=== PATIENT | male | born 1985 | race Caucasian/White ===

== ENCOUNTER 2020-01-02 21:30 | Observation (INO) ==
[2020-01-02] MEDS: 0.9 % Sodium Chloride 1,000 ML IVC SCH ×2 (22:05→23:44)
[2020-01-02 22:17] LABS: Basophils % 0.1 %; Hematocrit 29.6 % (37.5-50.1); Hemoglobin 9.8 g/dL (12.9-16.9); Immature Granulocytes % 0.9 % (0-4); Lymphocytes # 2.3 K/mcL (0.6-4.6); Lymphocytes % 17.4 %; Mean Corpuscular HGB Conc 33.1 g/dL (31.6-35.5); Mean Corpuscular Hemoglobin 26.1 pg (28.0-33.3); Mean Corpuscular Volume 78.9 fL (83.0-100.0); Mean Platelet Volume 10.8 fL (9.4-12.4); Monocytes # 0.9 K/mcL (0.0-1.3); Monocytes % 6.7 %; Neutrophils # 10.1 K/mcL (1.6-8.9); Platelet Count 219 K/mcL (140-400); Red Blood Count 3.75 M/mcL (4.19-5.50); Red Cell Distribution Width 14.6 % (11.5-14.5); Segmented Neutrophils % 74.9 %; White Blood Count 13.5 K/mcL (4.3-11.1)
[2020-01-02 22:18] LABS: INR 1.3; Prothrombin Time 15.2 Seconds (9.4-12.1)
[2020-01-02 22:21] LABS: Activated Partial Thrombo Time 25.8 Seconds (26.0-36.0)
[2020-01-02 22:30] LABS: Bilirubin,Urine Negative (Negative); Blood,Urine Trace (Negative); Clarity,Urine Clear (Clear); Color,Urine Light-Yellow (Yellow); Glucose,Urine (UA) Normal (Normal); Ketones,Urine Negative (Negative); Leukocyte Esterase,Urine Negative (Negative); Nitrite,Urine Negative (Negative); Protein,Urine Negative (Neg-Trace); RBC,Urine 0-3 per hpf (0-3); Specific Gravity,Urine 1.009 (1.010-1.025); Urobilinogen,Urine Normal (Normal)
[2020-01-02] MEDS ORDERED: Piperacillin/Tazobactam 3.375 GM in 0.9 % Sodium Chloride Mini Bag 100 ML IVPB ONE (22:35)
[2020-01-02] MEDS ORDERED: Vancomycin 2,000 MG/520 ML IV.SOLN IVPB ONE (22:35)
[2020-01-02 22:36] LABS: Alanine Aminotransferase 10 Units/L (7-52); Albumin 3.3 g/dL (3.5-5.7); Albumin/Globulin Ratio 0.9 (1.1-2.2); Alkaline Phosphatase 103 Units/L (34-104); Aspartate Amino Transferase 12 Units/L (13-39); BUN/Creatinine Ratio 6 (6-26); Bilirubin,Direct 0.2 mg/dL (0.0-0.2); Bilirubin,Indirect 0.3 mg/dL (0.0-1.0); Bilirubin,Total 0.5 mg/dL (0.3-1.0); Blood Urea Nitrogen 4 mg/dL (6-20); Calcium 8.6 mg/dL (8.6-10.3); Carbon Dioxide 23 mEq/L (23-29); Chloride 92 mEq/L (98-107); Globulin 3.7 g/dL (2.4-3.5); Glucose 110 mg/dL (70-105); Magnesium 1.2 mg/dL (1.6-2.6); Osmolality,Calculated 256 (280-300); Phosphorous 2.5 mg/dL (2.7-4.5); Potassium 3.6 mEq/L (3.5-5.1); Sodium 124 mEq/L (136-145); Troponin I < 0.03 ng/mL (< 0.04); eGFR For African Americans > 60 (> 60); eGFR For Non-African Americans > 60 (> 60)
[2020-01-02 22:40] LABS: Amphetamine Screen,Urine Positive ng/mL (Cutoff=1000); Barbiturate Screen,Urine Negative ng/mL (Cutoff=200); Benzodiazepines Screen,Urine Negative ng/mL (Cutoff=200); Cannabinoid Screen,Urine Negative ng/mL (Cutoff = 50); Cocaine Screen,Urine Negative ng/mL (Cutoff= 300); Opiate Screen,Urine Negative ng/mL (Cutoff=300); Phencyclidine Screen,Urine Negative ng/mL (Cutoff=25)
[2020-01-02] MEDS ORDERED: Isovue-370 500 ML BOTTLE IVP ONE (23:30)
[2020-01-03] MEDS: 0.9 % Sodium Chloride 1,000 ML IVC SCH (01:24)
[2020-01-03 01:27] LABS: Adenovirus Not Detected (Not Detect); Coronavirus 229E Not Detected (Not Detect); Coronavirus HKU1 Not Detected (Not Detect); Coronavirus NL63 Not Detected (Not Detect); Coronavirus OC43 Not Detected (Not Detect); Human Metapneumovirus Not Detected (Not Detect); Human Rhinovirus/Enterovirus DETECTED (Not Detect); Influenza A Subtype 2009 H1 Not Detected (Not Detect)
[2020-01-03] MEDS ORDERED: Naloxone 0.4 MG/ML INJ IVP PRN (01:27)
[2020-01-03] MEDS ORDERED: Ondansetron 4 MG/2 ML VIAL IVP PRN (01:27)
[2020-01-03 01:28] LABS: Bordetella Pertussis Not Detected (Not Detect); Chlamydophila pneumoniae Not Detected (Not Detect); Influenza B Not Detected (Not Detect); Mycoplasma pneumoniae Not Detected (Not Detect); Parainfluenza Virus 1 Not Detected (Not Detect); Parainfluenza Virus 2 Not Detected (Not Detect); Parainfluenza Virus 3 Not Detected (Not Detect); Parainfluenza Virus 4 Not Detected (Not Detect); Respiratory Syncytial Virus Not Detected (Not Detect)
[2020-01-03] MEDS ORDERED: Perflutren Lipid Microsphere 1.3 ML in 0.9 % Sodium Chloride 8.7 ML IVP PRN (01:44)
[2020-01-03 02:05] LABS: Potassium,Urine 24.2 mEq/L; Sodium, Urine 30.9 mEq/L
[2020-01-03] MEDS ORDERED: Ipratropium/Albuterol Neb 3 ML IH PRN (03:13)
[2020-01-03] MEDS ORDERED: Acetaminophen IV 1,000 MG/100 ML INFUS..BTL IVPB SCH (06:00)
[2020-01-03 06:55] LABS: Basophils % 0.2 %; Hematocrit 27.6 % (37.5-50.1); Immature Granulocytes % 0.8 % (0-4); Lymphocytes # 1.5 K/mcL (0.6-4.6); Lymphocytes % 12.2 %; Mean Corpuscular HGB Conc 32.6 g/dL (31.6-35.5); Mean Corpuscular Hemoglobin 26.1 pg (28.0-33.3); Mean Platelet Volume 10.7 fL (9.4-12.4); Neutrophils # 9.4 K/mcL (1.6-8.9); Platelet Count 205 K/mcL (140-400); Red Blood Count 3.45 M/mcL (4.19-5.50); Segmented Neutrophils % 78.8 %; White Blood Count 11.9 K/mcL (4.3-11.1)
[2020-01-03 07:00] LABS: INR 1.4; Prothrombin Time 16.4 Seconds (9.4-12.1)
[2020-01-03 07:50] LABS: BUN/Creatinine Ratio 6 (6-26); Blood Urea Nitrogen 4 mg/dL (6-20); Calcium 8.4 mg/dL (8.6-10.3); Carbon Dioxide 24 mEq/L (23-29); Chloride 99 mEq/L (98-107); Ferritin 323 ng/mL (20-250); Glucose 126 mg/dL (70-105); Iron < 10 mcg/dL (65-175); Magnesium 1.8 mg/dL (1.6-2.6); Osmolality,Calculated 270 (280-300); Phosphorous 3.1 mg/dL (2.7-4.5); Potassium 3.3 mEq/L (3.5-5.1); Sodium 131 mEq/L (136-145); Thyroid Stimulating Hormone 0.669 mcIU/mL (0.340-5.600); Transferrin 141 mg/dL (203-362); eGFR For African Americans > 60 (> 60); eGFR For Non-African Americans > 60 (> 60)
[2020-01-03] MEDS ORDERED: Piperacillin/Tazobactam 3.375 GM in 0.9 % Sodium Chloride Mini Bag 100 ML IVP SCH ×2 (08:00→11:00)
[2020-01-03 08:26] LABS: Folate 9.7 ng/mL (3.0-16.0)
[2020-01-03] MEDS ORDERED: *HR* FentaNYL (PF) 100 MCG/2 ML VIAL IVP ONE (08:53)
[2020-01-03] MEDS ORDERED: *HR* FentaNYL (PF) 100 MCG/2 ML VIAL ONE (08:54)
[2020-01-03 09:14] LABS: Lactate Dehydrogenase 141 Units/L (140-271); Total Protein 6.8 g/dL (6.4-8.9)
[2020-01-03 11:10] VITALS: BP 108/69
[2020-01-03] MEDS ORDERED: *HR* OxyCODONE Immed Rel 5 MG TABLET PO PRN (11:27)
[2020-01-03] MEDS ORDERED: Vancomycin 1,500 MG/265 ML IV.SOLN IVPB SCH (12:00)
[2020-01-03] MEDS ORDERED: Acetaminophen 325 MG TABLET PO PRN (12:51)
[2020-01-03] MEDS ORDERED: *HR* HYDROmorphone (PF) 1 MG/ML SYRINGE IVP ONE (14:27)
[2020-01-03 16:03] LABS: Acinetobacter baumannii by PCR Not Detected (Not Detect); Candida albicans by PCR Not Detected (Not Detect); Candida glabrata by PCR Not Detected (Not Detect); Candida krusei by PCR Not Detected (Not Detect); Candida parapsilosis by PCR Not Detected (Not Detect); Candida tropicalis by PCR Not Detected (Not Detect); Enterobacter cloacae Cmplx PCR Not Detected (Not Detect); Enterobacteriaceae by PCR Not Detected (Not Detect); Enterococcus by PCR Not Detected (Not Detect); Escherichia coli by PCR Not Detected (Not Detect); Klebsiella oxytoca by PCR Not Detected (Not Detect); Klebsiella pneumoniae by PCR Not Detected (Not Detect); Proteus by PCR Not Detected (Not Detect); Pseudomonas aeruginosa by PCR Not Detected (Not Detect); Serratia marcescens by PCR Not Detected (Not Detect); Staphylococcus aureus by PCR DETECTED (Not Detect); Streptococcus agalactiae(B)PCR Not Detected (Not Detect); Streptococcus by PCR Not Detected (Not Detect); Streptococcus pneumoniae PCR Not Detected (Not Detect); Streptococcus pyogenes (A) PCR Not Detected (Not Detect); mecA Methicillin-Resist Gene DETECTED (Not Detect)
[2020-01-03 18:46] LABS: Appearance of Pleural Fl Cloudy (Clear)
[2020-01-03 19:47] LABS: Basophils,Pleural Fluid 0 %; Eosinophils,Pleural Fluid 0 %; Monocytes,Pleural Fluid 0 %
== END 2020-01-03 16:59 | disposition other institution (70) ==
LOC: 2ANU 21:30 → EMEROOARM 21:30 → SUATTDRO 01-03 02:11 → 2ANU 01-03 02:32
PROVIDERS: ADMIT Internal Medicine; ATTEND Pharmacist

== ENCOUNTER 2020-06-06 03:00 | Observation (INO) ==
[2020-06-06] MEDS ORDERED: Naloxone 0.4 MG/ML INJ IVP PRN (03:37)
[2020-06-06] MEDS ORDERED: Acetaminophen 325 MG TABLET PO PRN (03:37)
[2020-06-06] MEDS ORDERED: Ondansetron 4 MG/2 ML VIAL IVP PRN (03:37)
[2020-06-06] MEDS ORDERED: Piperacillin/Tazobactam 3.375 GM in 0.9 % Sodium Chloride Mini Bag 100 ML IVPB SCH (04:00)
[2020-06-06] MEDS: *HR* OxyCODONE Immed Rel 5 MG TABLET PO PRN ×4 (04:19→23:53)
[2020-06-06] MEDS ORDERED: Vancomycin 1,750 MG/517.5 ML IV.SOLN IVPB ONE (05:00)
[2020-06-06] MEDS: *HR* HYDROmorphone (PF) 1 MG/ML SYRINGE IVP PRN ×4 (05:11→20:13)
[2020-06-06 05:12] LABS: Basophils % 0.5 %; Eosinophils # 0.2 K/mcL (0.0-0.6); Eosinophils % 3.6 %; Hematocrit 33.3 % (37.5-50.1); Hemoglobin 10.4 g/dL (12.9-16.9); Immature Granulocytes % 0.3 % (0-4); Lymphocytes # 2.1 K/mcL (0.6-4.6); Lymphocytes % 33.6 %; Mean Corpuscular HGB Conc 31.2 g/dL (31.6-35.5); Mean Corpuscular Hemoglobin 24.5 pg (28.0-33.3); Mean Corpuscular Volume 78.4 fL (83.0-100.0); Mean Platelet Volume 10.1 fL (9.4-12.4); Monocytes # 0.4 K/mcL (0.0-1.3); Monocytes % 6.4 %; Neutrophils # 3.5 K/mcL (1.6-8.9); Platelet Count 334 K/mcL (140-400); Red Blood Count 4.25 M/mcL (4.19-5.50); Red Cell Distribution Width 16.8 % (11.5-14.5); Segmented Neutrophils % 55.6 %; White Blood Count 6.4 K/mcL (4.3-11.1)
[2020-06-06 05:25] LABS: BUN/Creatinine Ratio 13 (6-26); Blood Urea Nitrogen 9 mg/dL (6-20); Calcium 9.4 mg/dL (8.6-10.3); Carbon Dioxide 26 mEq/L (23-29); Chloride 101 mEq/L (98-107); Glucose 106 mg/dL (70-105); Osmolality,Calculated 279 (280-300); Potassium 4.1 mEq/L (3.5-5.1); Sodium 135 mEq/L (136-145); eGFR For African Americans > 60 (> 60); eGFR For Non-African Americans > 60 (> 60)
[2020-06-06] MEDS ORDERED: *HR* Enoxaparin 40 MG/0.4 ML SYRINGE SQ SCH (06:00)
[2020-06-06] MEDS: *HR* HYDROcodone/Acet 5/325 mg TABLET PO PRN ×3 (08:26→21:24)
[2020-06-06] MEDS ORDERED: *HR* HYDROmorphone (PF) 1 MG/ML SYRINGE IVP ONE (09:14)
[2020-06-06] MEDS ORDERED: Gadolinium Contrast Agent (WT Based) IV PRN (09:21)
[2020-06-06] MEDS ORDERED: *HR* LORazepam 1 MG TABLET PO ONE ×2 (10:03→14:46)
[2020-06-06] MEDS: Vancomycin 1,500 MG/265 ML IV.SOLN IVPB SCH ×2 (13:53→23:54)
[2020-06-06] MEDS ORDERED: Isovue-370 500 ML BOTTLE IVP ONE (14:50)
[2020-06-06] MEDS ORDERED: hydrOXYzine pamoate 25 MG CAPSULE PO PRN (21:10)
[2020-06-06] MEDS ORDERED: ALPRAZolam 1 MG TABLET PO STA (23:22)
[2020-06-06 23:50] VITALS: BP 126/66
[2020-06-07 03:37] LABS: Hematocrit 33.8 % (37.5-50.1); Hemoglobin 10.4 g/dL (12.9-16.9); Mean Corpuscular HGB Conc 30.8 g/dL (31.6-35.5); Mean Corpuscular Hemoglobin 23.6 pg (28.0-33.3); Mean Corpuscular Volume 76.8 fL (83.0-100.0); Mean Platelet Volume 9.7 fL (9.4-12.4); Platelet Count 409 K/mcL (140-400); Red Cell Distribution Width 16.6 % (11.5-14.5); White Blood Count 9.4 K/mcL (4.3-11.1)
[2020-06-07 03:58] LABS: BUN/Creatinine Ratio 12 (6-26); Blood Urea Nitrogen 10 mg/dL (6-20); Calcium 9.7 mg/dL (8.6-10.3); Carbon Dioxide 26 mEq/L (23-29); Chloride 102 mEq/L (98-107); Glucose 104 mg/dL (70-105); Osmolality,Calculated 279 (280-300); Potassium 4.2 mEq/L (3.5-5.1); Sodium 135 mEq/L (136-145); eGFR For African Americans > 60 (> 60); eGFR For Non-African Americans > 60 (> 60)
[2020-06-07] MEDS: *HR* HYDROmorphone (PF) 1 MG/ML SYRINGE IVP PRN ×2 (04:39→08:44)
[2020-06-07] MEDS: *HR* OxyCODONE Immed Rel 5 MG TABLET PO PRN (06:14)
== END 2020-06-07 10:50 | disposition left against medical advice (07) ==
LOC: 3NENU → SUATTDRO 03:00
PROVIDERS: ADMIT Internal Medicine; ATTEND Internal Medicine

== ENCOUNTER 2020-10-31 03:54 | Observation (INO) ==
[2020-10-31] MEDS ORDERED: 0.9 % Sodium Chloride 1,000 ML IVC ONE ×4 (04:43→19:35)
[2020-10-31] MEDS ORDERED: Morphine Sulfate 2 MG/ML SYRINGE IVP ONE ×2 (04:55→06:22)
[2020-10-31] MEDS ORDERED: Isovue-370 500 ML BOTTLE IVP ONE (04:55)
[2020-10-31] MEDS ORDERED: Piperacillin/Tazobactam 3.375 GM in 0.9 % Sodium Chloride Mini Bag 100 ML IVPB ONE (04:57)
[2020-10-31] MEDS ORDERED: Vancomycin 1,250 MG/262.5 ML IV.SOLN IVPB ONE (04:57)
[2020-10-31 05:08] LABS: BUN/Creatinine Ratio 23 (6-26); Blood Urea Nitrogen 22 mg/dL (6-20); Calcium 8.7 mg/dL (8.6-10.3); Carbon Dioxide 19 mEq/L (23-29); Chloride 96 mEq/L (98-107); Glucose 115 mg/dL (70-105); Lipase 11 Units/L (11-82); Osmolality,Calculated 276 (280-300); Potassium 3.2 mEq/L (3.5-5.1); Sodium 131 mEq/L (136-145); eGFR For African Americans > 60 (> 60); eGFR For Non-African Americans > 60 (> 60)
[2020-10-31 05:24] LABS: Troponin I 0.05 ng/mL (< 0.04)
[2020-10-31] MEDS ORDERED: Tdap (Boostrix) Vaccine 0.5 ML SYRINGE IM ONE (05:58)
[2020-10-31 06:03] LABS: Hematocrit 34.3 % (37.5-50.1); Mean Corpuscular HGB Conc 32.1 g/dL (31.6-35.5); Nucleated Red Blood Cells 0.1 /100 WBC (0); Red Cell Distribution Width 19.8 % (11.5-14.5)
[2020-10-31 06:04] LABS: Basophils # 0.1 K/mcL (0.0-0.2); Basophils % 0.9 %; Eosinophils # 0.1 K/mcL (0.0-0.6); Eosinophils % 0.4 %; Immature Granulocytes % 3.5 % (0-4); Immature Platelets 11.1 % (1.1-6.1); Lymphocytes # 0.6 K/mcL (0.6-4.6); Lymphocytes % 3.9 %; Mean Corpuscular Hemoglobin 25.9 pg (28.0-33.3); Mean Corpuscular Volume 80.9 fL (83.0-100.0); Monocytes # 0.3 K/mcL (0.0-1.3); Neutrophils # 12.7 K/mcL (1.6-8.9); Red Blood Count 4.24 M/mcL (4.19-5.50); Segmented Neutrophils % 89.3 %; White Blood Count 14.2 K/mcL (4.3-11.1)
[2020-10-31 06:05] LABS: Platelet Count 39 K/mcL (140-400)
[2020-10-31] MEDS ORDERED: Potassium Chloride Elixir 20 MEQ/15 ML UDC PO ONE (06:07)
[2020-10-31] MEDS ORDERED: Aspirin 325 MG TABLET PO ONE (06:07)
[2020-10-31 06:28] LABS: Anisocytosis 1+ (Not Present); Platelet Estimate Marked Decrease (Normal); Smudge Cells Present (Not Present); Toxic Vacuolation Present (Not Present)
[2020-10-31] MEDS ORDERED: Ondansetron 4 MG/2 ML VIAL IVP STA (06:58)
[2020-10-31] MEDS ORDERED: *HR* HYDROcodone/Acet 5/325 mg TABLET PO PRN (08:01)
[2020-10-31] MEDS ORDERED: Naloxone 0.4 MG/ML INJ IVP PRN (08:01)
[2020-10-31] MEDS ORDERED: Ondansetron 4 MG/2 ML VIAL IVP PRN (08:01)
[2020-10-31 08:11] LABS: Creatine Kinase < 10 Units/L (30-223)
[2020-10-31] MEDS ORDERED: *HR* LORazepam 2 MG/ML VIAL IVP PRN ×2 (08:34→16:24)
[2020-10-31 09:26] LABS: INR 1.7; Prothrombin Time 19.3 Seconds (9.4-12.1)
[2020-10-31 09:29] LABS: Activated Partial Thrombo Time 30.6 Seconds (26.0-36.0)
[2020-10-31] MEDS: *HR* OxyCODONE Immed Rel 5 MG TABLET PO PRN ×3 (09:38→22:47)
[2020-10-31] MEDS: Ringers Solution, Lactated 1,000 ML IVC SCH ×4 (09:39→21:48)
[2020-10-31 09:41] LABS: Troponin I 0.03 ng/mL (< 0.04)
[2020-10-31] MEDS ORDERED: Acetaminophen IV 1,000 MG/100 ML BAG IVPB ONE (12:53)
[2020-10-31] MEDS: *HR* Heparin 5,000 UNIT/ML VIAL SQ SCH ×2 (13:56→21:48)
[2020-10-31] MEDS: Piperacillin/Tazobactam 3.375 GM in 0.9 % Sodium Chloride Mini Bag 100 ML IVPB SCH ×2 (14:11→21:47)
[2020-10-31 16:49] LABS: Acinetobacter baumannii by PCR Not Detected (Not Detect); Enterococcus by PCR Not Detected (Not Detect); Staphylococcus aureus by PCR Not Detected (Not Detect); Staphylococcus by PCR Not Detected (Not Detect); Streptococcus agalactiae(B)PCR Not Detected (Not Detect); Streptococcus by PCR Not Detected (Not Detect); Streptococcus pneumoniae PCR Not Detected (Not Detect); Streptococcus pyogenes (A) PCR Not Detected (Not Detect)
[2020-10-31 16:50] LABS: Candida albicans by PCR Not Detected (Not Detect); Candida glabrata by PCR Not Detected (Not Detect); Candida krusei by PCR Not Detected (Not Detect); Candida parapsilosis by PCR Not Detected (Not Detect); Candida tropicalis by PCR Not Detected (Not Detect); Enterobacter cloacae Cmplx PCR Not Detected (Not Detect); Enterobacteriaceae by PCR DETECTED (Not Detect); Escherichia coli by PCR Not Detected (Not Detect); Klebsiella oxytoca by PCR Not Detected (Not Detect); Klebsiella pneumoniae by PCR Not Detected (Not Detect); Proteus by PCR Not Detected (Not Detect); Pseudomonas aeruginosa by PCR Not Detected (Not Detect); Serratia marcescens by PCR DETECTED (Not Detect)
[2020-10-31] MEDS: Vancomycin 1,250 MG/262.5 ML IV.SOLN IVPB SCH (16:58)
[2020-10-31 20:00] LABS: ABG Base Excess -10 mEq/L (-2 to 3); ABG HCO3 13 mEq/L (21-27); ABG Oxygen Saturation 92 % (95-98); ABG PCO2 20 mmHg (35-45); ABG PH 7.41 pH Units (7.32-7.45); ABG PO2 61 mmHg (85-104); ABG TCO2 13 mEq/L (20-26)
[2020-10-31 21:28] LABS: Bacteria,Urine Few per hpf (None-Few); Bilirubin,Urine Negative (Negative); Blood,Urine Large (Negative); Budding Yeast,Urine Moderate per hpf (None Seen); Clarity,Urine Turbid (Clear); Color,Urine Light-Orange (Yellow); Glucose,Urine (UA) Normal (Normal); Ketones,Urine Negative (Negative); Leukocyte Esterase,Urine Moderate (Negative); Nitrite,Urine Negative (Negative); Protein,Urine 100 mg/dL (Neg-Trace); RBC,Urine TNTC per hpf (0-3); Specific Gravity,Urine 1.026 (1.010-1.025); Urobilinogen,Urine Normal (Normal); WBC,Urine 50-100 per hpf (0-3)
[2020-10-31 21:52] LABS: Amphetamine Screen,Urine Negative ng/mL (Cutoff=1000); Barbiturate Screen,Urine Negative ng/mL (Cutoff=200); Benzodiazepines Screen,Urine Negative ng/mL (Cutoff=200); Cannabinoid Screen,Urine Negative ng/mL (Cutoff = 50); Cocaine Screen,Urine Negative ng/mL (Cutoff= 300); Opiate Screen,Urine Positive ng/mL (Cutoff=300); Phencyclidine Screen,Urine Negative ng/mL (Cutoff=25)
[2020-11-01] MEDS ORDERED: *HR* Labetalol 20 MG/4 ML SYRINGE IVP ONE (02:10)
[2020-11-01] MEDS ORDERED: *HR* Metoprolol 5 MG/5 ML VIAL IVP ONE ×2 (02:19→03:32)
[2020-11-01] MEDS ORDERED: Ringers Solution, Lactated 1,000 ML IVC ONE (02:34)
[2020-11-01] MEDS ORDERED: Ringers Solution, Lactated 1,000 ML ONE (02:40)
[2020-11-01] MEDS: *HR* Metoprolol 5 MG/5 ML VIAL IVP ONE ×2 (02:41→03:25)
[2020-11-01] MEDS ORDERED: Isovue-370 500 ML BOTTLE IVP ONE (02:48)
[2020-11-01] MEDS ORDERED: D5% in Water 1,000 ML IVC PRN (02:56)
[2020-11-01] MEDS ORDERED: Dextrose Gel 15 GM/37.5 ML TUBE PO PRN ×2 (02:56)
[2020-11-01] MEDS ORDERED: *HR* Dextrose 50 % in Water (Vial) 50 ML VIAL ONE (02:57)
[2020-11-01] MEDS: *HR* Dextrose 50 % in Water (Vial) 50 ML VIAL IVP PRN ×2 (03:01→03:25)
[2020-11-01 03:04] LABS: Eosinophils % 0.1 %; Hemoglobin 11.4 g/dL (12.9-16.9); Mean Corpuscular Volume 84.5 fL (83.0-100.0); Red Cell Distribution Width 20.2 % (11.5-14.5)
[2020-11-01 03:06] LABS: Basophils # 0.1 K/mcL (0.0-0.2); Basophils % 0.6 %; Hematocrit 37.5 % (37.5-50.1); Immature Granulocytes % 2.9 % (0-4); Immature Platelets 18.8 % (1.1-6.1); Lymphocytes # 2.5 K/mcL (0.6-4.6); Lymphocytes % 13.9 %; Mean Corpuscular HGB Conc 30.4 g/dL (31.6-35.5); Mean Corpuscular Hemoglobin 25.7 pg (28.0-33.3); Monocytes % 5.5 %; Neutrophils # 14.1 K/mcL (1.6-8.9); Nucleated Red Blood Cells 0.2 /100 WBC (0); Red Blood Count 4.44 M/mcL (4.19-5.50); White Blood Count 18.3 K/mcL (4.3-11.1)
[2020-11-01 03:08] LABS: Platelet Count 27 K/mcL (140-400)
[2020-11-01 03:12] LABS: INR 2.4; Prothrombin Time 27.1 Seconds (9.4-12.1)
[2020-11-01] MEDS ORDERED: 0.9 % Sodium Chloride 1,000 ML ONE ×3 (03:26→08:06)
[2020-11-01 03:32] LABS: Anisocytosis 1+ (Not Present); Platelet Estimate Marked Decrease (Normal); Poikilocytosis 1+ (Not Present); Toxic Granulation Present (Not Present); Toxic Vacuolation Present (Not Present)
[2020-11-01 03:34] LABS: Burr Cells 2+ (Not Present)
[2020-11-01 03:38] LABS: BUN/Creatinine Ratio 22 (6-26); Blood Urea Nitrogen 24 mg/dL (6-20); Carbon Dioxide 10 mEq/L (23-29); Chloride 98 mEq/L (98-107); Glucose 24 mg/dL (70-105); Potassium 4.1 mEq/L (3.5-5.1); Sodium 134 mEq/L (136-145); eGFR For African Americans > 60 (> 60); eGFR For Non-African Americans > 60 (> 60)
[2020-11-01 03:39] LABS: Alanine Aminotransferase 62 Units/L (7-52); Albumin 2.8 g/dL (3.5-5.7); Albumin/Globulin Ratio 0.8 (1.1-2.2); Alkaline Phosphatase 178 Units/L (34-104); Aspartate Amino Transferase 173 Units/L (13-39); Bilirubin,Total 2.8 mg/dL (0.3-1.0); Calcium 8.6 mg/dL (8.6-10.3); Creatine Kinase 10 Units/L (30-223); Globulin 3.3 g/dL (2.4-3.5); Magnesium 1.5 mg/dL (1.6-2.6); Osmolality,Calculated 278 (280-300); Phosphorous 3.6 mg/dL (2.7-4.5); Total Protein 6.1 g/dL (6.4-8.9); Troponin I 0.04 ng/mL (< 0.04)
[2020-11-01 03:55] LABS: ABG Base Excess -17 mEq/L (-2 to 3); ABG HCO3 9 mEq/L (21-27); ABG Oxygen Saturation 85 % (95-98); ABG PCO2 21 mmHg (35-45); ABG PH 7.21 pH Units (7.32-7.45); ABG PO2 59 mmHg (85-104); ABG TCO2 9 mEq/L (20-26)
[2020-11-01] MEDS ORDERED: DilTIAZem 50 MG/50 ML IV.SOLN IVC SCH (04:30)
[2020-11-01] MEDS ORDERED: Dexmedetomidine HCl 400 MCG/100 ML MLS IVC ONE (04:35)
[2020-11-01] MEDS ORDERED: *HR* Heparin 5,000 UNIT/ML VIAL IVP ONE (04:44)
[2020-11-01] MEDS ORDERED: *HR* Heparin 5,000 UNIT/ML VIAL IVP PRN ×2 (04:44)
[2020-11-01] MEDS ORDERED: Dexmedetomidine HCl 400 MCG/100 ML MLS IVC SCH (04:45)
[2020-11-01] MEDS ORDERED: Heparin 25,000UNIT/250ML 1/2NS 25,000 UNIT/250 ML IV.SOLN IVC SCH (04:45)
[2020-11-01 05:25] LABS: Mean Corpuscular Volume 85.6 fL (83.0-100.0); Red Cell Distribution Width 20.2 % (11.5-14.5)
[2020-11-01 05:27] LABS: Immature Platelets 19.2 % (1.1-6.1); Mean Corpuscular HGB Conc 29.7 g/dL (31.6-35.5); Mean Corpuscular Hemoglobin 25.5 pg (28.0-33.3); Red Blood Count 4.32 M/mcL (4.19-5.50); White Blood Count 15.8 K/mcL (4.3-11.1)
[2020-11-01 05:30] LABS: Platelet Count 24 K/mcL (140-400)
[2020-11-01 05:31] LABS: VBG Ionized Calcium 1.11 mmol/L (1.15-1.35)
[2020-11-01 05:34] LABS: Fibrinogen 370 mg/dL (169-393); Heparin anti-factor XA UFH < 0.04 IU/mL (0.30-0.70)
[2020-11-01 05:35] LABS: INR 2.4; Prothrombin Time 26.9 Seconds (9.4-12.1)
[2020-11-01 05:43] LABS: Alanine Aminotransferase 82 Units/L (7-52); Albumin 2.6 g/dL (3.5-5.7); Albumin/Globulin Ratio 0.8 (1.1-2.2); Alkaline Phosphatase 175 Units/L (34-104); Aspartate Amino Transferase 238 Units/L (13-39); BUN/Creatinine Ratio 21 (6-26); Bilirubin,Total 2.7 mg/dL (0.3-1.0); Blood Urea Nitrogen 23 mg/dL (6-20); Calcium 8.2 mg/dL (8.6-10.3); Carbon Dioxide 12 mEq/L (23-29); Chloride 98 mEq/L (98-107); Globulin 3.3 g/dL (2.4-3.5); Glucose 128 mg/dL (70-105); Magnesium 1.9 mg/dL (1.6-2.6); Osmolality,Calculated 281 (280-300); Phosphorous 4.1 mg/dL (2.7-4.5); Potassium 3.5 mEq/L (3.5-5.1); Sodium 133 mEq/L (136-145); Total Protein 5.9 g/dL (6.4-8.9); eGFR For African Americans > 60 (> 60); eGFR For Non-African Americans > 60 (> 60)
[2020-11-01 05:53] LABS: D-Dimer 11999 ng/mLFEU (0-500)
[2020-11-01] MEDS: Piperacillin/Tazobactam 3.375 GM in 0.9 % Sodium Chloride Mini Bag 100 ML IVPB SCH (05:56)
[2020-11-01] MEDS ORDERED: Artificial Tears SOLN 15 ML BOTTLE BOTH EYES PRN (07:29)
[2020-11-01] MEDS ORDERED: Midazolam HCl 50 MG/100 ML IV.SOLN IVC SCH (07:30)
[2020-11-01] MEDS ORDERED: FentaNYL (PF) 1,000 MCG/100 ML IV.SOLN IVC SCH (07:30)
[2020-11-01] MEDS ORDERED: Norepinephrine 4 MG/254 ML IV.SOLN IVC SCH (07:45)
[2020-11-01] MEDS ORDERED: Artificial Tears SOLN 15 ML BOTTLE BOTH EYES SCH (08:00)
[2020-11-01 08:20] VITALS: BP 92/62
[2020-11-01 08:22] LABS: Adenovirus Not Detected (Not Detect); Bordetella Pertussis Not Detected (Not Detect); Chlamydophila pneumoniae Not Detected (Not Detect); Coronavirus 229E Not Detected (Not Detect); Coronavirus HKU1 Not Detected (Not Detect); Coronavirus NL63 Not Detected (Not Detect); Coronavirus OC43 Not Detected (Not Detect); Human Metapneumovirus Not Detected (Not Detect); Human Rhinovirus/Enterovirus Not Detected (Not Detect); Influenza A Subtype 2009 H1 Not Detected (Not Detect); Influenza B Not Detected (Not Detect); Mycoplasma pneumoniae Not Detected (Not Detect); Parainfluenza Virus 1 Not Detected (Not Detect); Parainfluenza Virus 2 Not Detected (Not Detect); Parainfluenza Virus 3 Not Detected (Not Detect); Parainfluenza Virus 4 Not Detected (Not Detect); Respiratory Syncytial Virus Not Detected (Not Detect); SARS-CoV-2 Not Detected (Not Detect)
[2020-11-01] MEDS ORDERED: Chlorhexidine Rinse 15 ML MOUTHWASH MM SCH (09:00)
[2020-11-01] MEDS ORDERED: Pantoprazole 40 MG VIAL IVP SCH (09:00)
[2020-11-01] MEDS ORDERED: Meropenem 2,000 MG in Water for inj. (sterile) 20 ML IVP ONE (09:09)
[2020-11-01] MEDS ORDERED: Sodium Bicarbonate 50 MEQ/50 ML VIAL IVP ONE (09:19)
[2020-11-01] MEDS ORDERED: Sodium Bicarbonate 150 MEQ in Water for inj. (sterile) 1,000 ML IVC SCH (09:30)
[2020-11-01] MEDS ORDERED: *HR* Propofol 200 MG/20 ML VIAL IVP ONE (09:49)
[2020-11-01] MEDS ORDERED: *HR* Etomidate 20 MG/10 ML AMPUL IVP ONE (09:49)
[2020-11-01] MEDS: Vancomycin 1,250 MG/262.5 ML IV.SOLN IVPB SCH (10:38)
== END 2020-11-01 09:50 | disposition short-term general hospital (02) ==
LOC: CDU 03:54 → EMEROOARM 03:54 → CDU 08:48 → 2ANU 14:56 → ICNU 11-01 03:22
PROVIDERS: ADMIT Internal Medicine; ATTEND Internal Medicine